=== PATIENT | male | born 1970 | race Asian ===

== ENCOUNTER 2016-11-23 11:14 | Emergency (ER) | payer MEDICAID ==
[2016-11-23 11:42] LABS: COLOR YELLOW; LEUKOCYTE ESTERASE,URINE NEGATIVE (NEGATIVE); NITRITE,URINE NEGATIVE (NEGATIVE)
[2016-11-23] MEDS ORDERED: NS 1,000 ML IV ONE (11:45)
--- NOTE | 2016-11-23 11:45 | UCPHY ---
H & P Patient Type: Established Chief Complaint Nursing Narrative: painful, burning urination x 2 weeks; LLq pain since last night; vomiting last night; chills/sweats since last night Time Seen by Provider: 11/23/16 11:18 HPI/ROS: CHIEF COMPLAINT: Dysuria, fever, low back pain HISTORY OF PRESENT ILLNESS: The patient presents to the urgent care with a 2 week history dysuria. Over the past day he has developed fever, low back pain and left lower quadrant pain. The patient denies prior history of the symptoms. The patient has no history kidney stone or prior genitourinary infection. The patient has no history of abdominal surgery. Patient reports his symptoms are moderate in nature. He reports subjective fevers without a measured temperature at home. The patient has no complaints of upper respiratory illness. REVIEW OF SYSTEMS: A comprehensive 10 point review of systems is otherwise negative aside from elements mentioned in the history of present illness. Source: Patient - Personal History Current Tetanus Diphtheria and Acellular Pertussis (TDAP): No - Medical/Surgical History Other PMH: myasthenia gravis, Hep C. surg-none - Family History Significant Family History: No pertinent family hx - Social History Smoking Status: Current every day smoker - Physical Exam Exam: General Appearance: Alert, no distress Eyes: Pupils equal and round no pallor or injection ENT, Mouth: Mucous membranes moist Respiratory: There are no retractions, lungs are clear to auscultation Cardiovascular: Regular rate and rhythm Gastrointestinal: Tenderness to palpation left lower quadrant Neurological: A&O, normal motor function, normal sensory exam, normal cranial nerves Skin: Warm and dry, no rashes Musculoskeletal: Neck is supple nontender Extremities: symmetrical, full range of motion Constitutional: Initial Vital Signs Temperature (C) 37.2 C 11/23/16 11:19 Heart Rate 89 11/23/16 11:19 Respiratory Rate 16 11/23/16 11:19 Blood Pressure 136/90 H 11/23/16 11:19 O2 Sat (%) 94 11/23/16 11:19 O2 Delivery Mode Room Air Allergies/Adverse Reactions: No Known Allergies Allergy (Verified 11/23/16 11:17) Home Medications: Medication Instructions Recorded Baraclude 08/11/15 Cellcept 11/23/16 Mestinon 11/23/16 Ondansetron Odt [Zofran Odt] 4 mg PO Q4PRN PRN #20 tab 11/23/16 Tamsulosin HCl [Flomax] 0.4 mg PO DAILY PRN #5 cap 11/23/16 oxyCODONE/APAP 5/325 [Percocet 1 - 2 tab PO Q6-8PRN PRN #20 tab 11/23/16 5/325 (RX)] Medical Decision Making - Diagnostics Imaging Results: Imaging Impressions Abdomen/Pelvis CT 11/23/16 11:57 Impression: 1. 5 mm distal left ureteral stone with mild obstructive uropathy and perinephric and periureteric stranding suggesting forniceal rupture. 2. Nonobstructing 4 mm stone in the distal right ureter. 3. Nephrolithiasis. 4. Additional findings as above. Attention: This CT examination is specifically designed to evaluate patients who are clinically suspected of having acute obstructive uropathy. This examination does not use radiographic contrast, and as such, provides only a limited evaluation of the abdomen, pelvis and retroperitoneum. If there is further clinical suspicion for pathological conditions other than obstructive uropathy, a complete CT evaluation of the abdomen and pelvis utilizing intravenous and oral contrast should be considered. Findings discussed with Cooper Purcell on November 23, 2016 at 12:25 p.m. ED Course/Re-evaluation: The patient presents to the emergency department with complaints of dysuria and left flank pain. He is noted to have a 5 mm distal left kidney stone on his CT scan. He also has a nonobstructing 4 mm right distal kidney stone. The patient did have mild renal insufficiency with a creatinine of 1.5. The patient did receive a 1 L of normal saline. The patient received IV morphine. The patient received oral Flomax. The patient has not been given NSAID's secondary to his slightly elevated creatinine. Given the bilateral ureterolithiasis I did nyla Jackson from Urology who will see the patient in follow-up later this week. The patient will be discharged home with customary aftercare instructions and return precautions. Differential Diagnosis: Differential diagnosis considered includes nephrolithiasis, ureterolithiasis, pyelonephritis - Data Points Laboratory Results: Laboratory Results 11/23/16 11:55 11/23/16 11:55 11/23/16 11/23/16 11/23/16 11:55 11:55 11:39 WBC 10.34 10^3/uL H 10^3/uL (3.80-9.50) RBC 5.62 10^6/uL 10^6/uL (4.40-6.38) Hgb 15.2 g/dL g/dL (13.7-17.5) Hct 44.2 % % (40.0-51.0) MCV 78.6 fL L fL (81.5-99.8) MCH 27.0 pg L pg (27.9-34.1) MCHC 34.4 g/dL g/dL (32.4-36.7) RDW 13.7 % % (11.5-15.2) Plt Count 190 10^3/uL 10^3/uL (150-400) MPV 9.9 fL fL (8.7-11.7) Neut % (Auto) 66.2 % % (39.3-74.2) Lymph % (Auto) 15.0 % % (15.0-45.0) [place] % (Auto) 16.6 % H % (4.5-13.0) Eos % (Auto) 1.5 % % (0.6-7.6) Baso % (Auto) 0.3 % % (0.3-1.7) Nucleat RBC Rel Count 0.0 % % (0.0-0.2) Absolute Neuts (auto) 6.85 10^3/uL H 10^3/uL (1.70-6.50) Absolute Lymphs (auto) 1.55 10^3/uL 10^3/uL (1.00-3.00) Absolute Monos (auto) 1.72 10^3/uL H 10^3/uL (0.30-0.80) Absolute Eos (auto) 0.15 10^3/uL 10^3/uL (0.03-0.40) Absolute Basos (auto) 0.03 10^3/uL 10^3/uL (0.02-0.10) Absolute Nucleated RBC 0.00 10^3/uL 10^3/uL (0-0.01) Immature Gran % 0.4 % % (0.0-1.1) Immature Gran # 0.04 10^3/uL 10^3/uL (0.00-0.10) Sodium 139 mEq/L mEq/L (134-144) Potassium 3.9 mEq/L mEq/L (3.5-5.2) Chloride 102 mEq/L mEq/L (97-110) Carbon Dioxide 23 mEq/l mEq/l (22-31) Anion Gap 14 mEq/L mEq/L (8-16) BUN 16 mg/dL mg/dL (7-23) Creatinine 1.5 mg/dL H mg/dL (0.7-1.3) Estimated GFR 50 Glucose 89 mg/dL mg/dL (70-100) Calcium 8.9 mg/dL mg/dL (8.5-10.4) Urine Color YELLOW Urine Appearance CLEAR Urine pH 7.0 (5.0-7.5) Ur Specific [place] 1.015 (1.002-1.030) Urine Protein NEGATIVE (NEGATIVE) Urine Ketones NEGATIVE (NEGATIVE) Urine Blood 1+ H (NEGATIVE) Urine Nitrate NEGATIVE (NEGATIVE) Urine Bilirubin NEGATIVE (NEGATIVE) Urine Urobilinogen 0.2 EU EU (0.2-1.0) Ur Leukocyte Esterase NEGATIVE (NEGATIVE) Urine RBC 10-15 /hpf H /hpf (0-3) Urine WBC 1-3 /hpf /hpf (0-3) Ur Epithelial Cells 2+ /lpf H /lpf (NONE-1+) Amorphous Sediment TRACE /hpf /hpf (NONE-1+) Ur Culture Indicated? NOT INDICATED (NI) Urine Glucose NEGATIVE (NEGATIVE) Medications Given: Discontinued Medications Sodium Chloride (Ns) 1,000 mls @ 0 mls/hr IV ONCE ONE PRN Reason: Wide Open Stop: 11/23/16 11:46 Last Admin: 11/23/16 12:10 Dose: 1,000 mls Tamsulosin HCl (Flomax) 0.4 mg PO EDNOW ONE Stop: 11/23/16 12:33 Last Admin: 11/23/16 12:42 Dose: 0.4 mg Departure - Departure Disposition: Home, Routine, Self-Care Clinical Impression: Kidney stone on left side Condition: Good Instructions: Kidney Stones (ED) Additional Instructions: 1. Tylenol as needed for pain 2. Percocet as needed for severe pain. Percocet also contains Tylenol. Do not take more than 3 g of Tylenol a day. 3. Flomax as directed 4. Zofran as needed for nausea 5. Strain urine as directed 6. Return to the Emergency Department for intractable pain, fever or vomiting. 7. Please contact the urologist office that you have been referred to to schedule a follow-up visit for later in the week. Given the fact you have a stone in both of your kidneys it is imperative that you be seen in close follow- up to make sure there is no compromise in your kidney function. Referrals: Tami Farias MD [Medical Doctor] - As per Instructions Prescriptions: Ondansetron Odt [Zofran Odt] 4 mg PO Q4PRN PRN #20 tab PRN Reason: For Nausea oxyCODONE/APAP 5/325 [Percocet 5/325 (RX)] 1 - 2 tab PO Q6-8PRN PRN #20 tab PRN Reason: for pain Tamsulosin HCl [Flomax] 0.4 mg PO DAILY PRN #5 cap PRN Reason: for pain - PQRS PQRS Measurement: NA
[2016-11-23 11:54] LABS: AMORPHOUS TRACE /hpf (NONE-1+)
[2016-11-23 11:59] LABS: % IMMATURE GRANULYOCYTES 0.4 % (0.0-1.1); ABSOLUTE IMMATURE GRANULOCYTES 0.04 10^3/uL (0.00-0.10); ADD DIFF? NO; ADD MORPH? NO; ADD SCAN? NO; ATYPICAL LYMPHOCYTE FLAG 10 (0-99); FRAGMENT RBC FLAG 0 (0-99); HEMATOCRIT 44.2 % (40.0-51.0); HEMOGLOBIN 15.2 g/dL (13.7-17.5); LEFT SHIFT FLG 0 (0-99); LIPEMIA HEMOLYSIS FLAG 90 (0-99); MEAN CELL HEMOGLOBIN CONCENTR. 34.4 g/dL (32.4-36.7); MEAN CELL VOLUME 78.6 fL (81.5-99.8); MEAN PLATELET VOLUME 9.9 fL (8.7-11.7); PLATELET CLUMPS FLAG 10 (0-99); PLATELET COUNT 190 10^3/uL (150-400); RED BLOOD CELL COUNT 5.62 10^6/uL (4.40-6.38); RED CELL DISTRIBUTION WIDTH 13.7 % (11.5-15.2)
[2016-11-23 12:26] LABS: CALCIUM 8.9 mg/dL (8.5-10.4); CREATININE 1.5 mg/dL (0.7-1.3); POTASSIUM 3.9 mEq/L (3.5-5.2)
[2016-11-23] MEDS ORDERED: TAMSULOSIN HCL 0.4 MG CAP PO ONE (12:32)
[2016-11-23 12:59] VITALS: BP 133/78; PULSE 82; RESP 18; TEMP 99.3; O2SAT 96
== END 2016-11-23 13:26 | disposition home or self-care (01) ==
LOC: CED 11:14
DX: N20.2 Calculus of kidney with calculus of ureter (principal); Z72.0 Tobacco use
CPT/HCPCS: 74176-PO; 80048-PO; 81003-PO; 81015-PO; 85025-PO; 96360-PO; 99205-PO; G0463-PO

== ENCOUNTER 2016-12-23 07:28 | Emergency (ER) | payer MEDICAID ==
[2016-12-23] MEDS ORDERED: NS 2,200 ML IV ONE (07:50)
[2016-12-23] MEDS ORDERED: ACETAMINOPHEN 500 MG TAB PO ONE (07:53)
--- NOTE | 2016-12-23 07:53 | EDPHY ---
H & P Stated Complaint: fever, headache, nausea 4 days Time Seen by Provider: 12/23/16 07:43 HPI/ROS: CHIEF COMPLAINT: Fever, body aches, headache, cough HISTORY OF PRESENT ILLNESS: Patient is a 46-year-old man from [place] who comes to the emergency department with his family complaining of a cough, fever , body aches, sore throat, sinus congestion, headache and nausea and vomiting for the last 4 days. He has vomited twice nonbloody. No diarrhea. No altered consciousness. He has not had any travel recently. REVIEW OF SYSTEMS: Constitutional: See HPI EENTM: denies: blurred vision, double vision Respiratory: denies: cough, shortness of breath Cardiac: denies: chest pain, irregular heart rate, lightheadedness, palpitations Gastrointestinal/Abdominal: denies: abdominal pain, diarrhea, nausea, vomiting, blood streaked stools Genitourinary: denies: dysuria, frequency, hematuria, pain Musculoskeletal: denies: joint pain, muscle pain Skin: denies: lesions, rash, jaundice, bruising Neurological: denies: headache, numbness, paresthesia, tingling, dizziness, weakness Hematologic/Lymphatic: denies: blood clots, easy bleeding, easy bruising Immunologic/allergic: denies: HIV/AIDS, transplant EXAM: GENERAL: Well-appearing, well-nourished and in no acute distress. HEAD: Atraumatic, normocephalic. 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 ENT: TMs normal, nares patent, oropharynx mildly erythematous and dry mucous membranes NECK: Normal range of motion, supple without lymphadenopathy or JVD. LUNGS: Breath sounds clear to auscultation bilaterally and equal. No wheezes rales or rhonchi. HEART: Regular rate and rhythm without murmurs, rubs or gallops. ABDOMEN: Soft, nontender, normoactive bowel sounds. No guarding, no rebound. No masses appreciated. BACK: No CVA tenderness, no spinal tenderness, step-offs or deformities EXTREMITIES: Normal range of motion, no pitting or edema. No clubbing or cyanosis. NEUROLOGICAL: Cranial nerves II through XII grossly intact. Normal speech, normal gait. 5/5 strength, normal movement in all extremities, normal sensation PSYCH: Normal mood, normal affect. SKIN: Warm, dry, normal turgor, no visible rashes or lesions. Source: Patient Exam Limitations: No limitations - Medical/Surgical History Hx Asthma: No Hx Chronic Respiratory Disease: No Hx Diabetes: No Hx Cardiac Disease: No Hx Renal Disease: No Hx Cirrhosis: No Hx Alcoholism: No Other PMH: myasthenia gravis, Hep C. surg-none - Social History Smoking Status: Current every day smoker Alcohol Use: Sober Drug Use: None Constitutional: Initial Vital Signs Temperature (C) 38.3 C 12/23/16 07:36 Heart Rate 103 H 12/23/16 07:36 Respiratory Rate 18 12/23/16 07:36 Blood Pressure 126/84 H 12/23/16 07:36 O2 Sat (%) 96 12/23/16 07:36 O2 Delivery Mode Room Air Allergies/Adverse Reactions: No Known Allergies Allergy (Verified 12/23/16 07:42) Home Medications: Medication Instructions Recorded Baraclude 08/11/15 Cellcept 11/23/16 Mestinon 11/23/16 Medical Decision Making - Diagnostics Imaging Results: Imaging Impressions Chest X-Ray 12/23/16 07:50 Impression: No pneumonia. Imaging: Discussed imaging studies w/ manager call center Radiologist ED Course/Re-evaluation: Patient's urinalysis is positive. I will start him on Rocephin. The patient states that he had kidney stones lasered 3 [address] Farias at [facility]. He was seen here 1 month ago for bilateral ureteral stones. This is likely the source of his infection. His fever has increased but his heart rate is improved with fluids. Will add ibuprofen. Considering the patient's immunocompromised status on CellCept for myasthenia gravis the possible surgical complications I recommended admission. The patient understands and agrees. He is requesting [facility]. 9:50 a.m. I spoke with Dr. Nicolás Johnson was on-call from [facility]. He agrees with admission and antibiotics in the form of Rocephin. He agrees to consult if the patient is admitted to the hospitalist service. He is okay with a [place] as the patient requests. 10:05 a.m. I discussed the case with Dr. Macdonald who accepted at a [facility] floor. Differential Diagnosis: Partial list of the Differential diagnosis considered include but were not limited to; sepsis, pyelonephritis, urinary tract infection, rupture and although unlikely based on the history and physical exam, I also considered abscess, hemorrhage. Critical Care Time: Critical care time spent by me, Dr. Ames exclusive with this patient was 35 minutes, exclusive of the PA time exclusive of procedures. The organ system that was at risk was cardiovascular and I gave IV fluids, antibiotics and transfer to prevent worsening of the patient's condition - Data Points Laboratory Results: Laboratory Results 12/23/16 08:30 12/23/16 08:30 12/23/16 12/23/16 12/23/16 Unknown 10:10 08:30 WBC RBC Hgb Hct MCV MCH MCHC RDW Plt Count MPV Neut % (Auto) Lymph % (Auto) [place] % (Auto) Eos % (Auto) Baso % (Auto) Nucleat RBC Rel Count Absolute Neuts (auto) Absolute Lymphs (auto) Absolute Monos (auto) Absolute Eos (auto) Absolute Basos (auto) Absolute Nucleated RBC Immature Gran % Immature Gran # PT INR APTT VBG Lactic Acid 0.6 mmol/L L D mmol/L (0.7-2.1) Sodium 138 mEq/L mEq/L (134-144) Potassium 4.1 mEq/L mEq/L (3.5-5.2) Chloride 99 mEq/L mEq/L (97-110) Carbon Dioxide 21 mEq/l L mEq/l (22-31) Anion Gap 18 mEq/L H mEq/L (8-16) BUN 14 mg/dL mg/dL (7-23) Creatinine 1.0 mg/dL mg/dL (0.7-1.3) Estimated GFR > 60 Glucose 114 mg/dL H mg/dL (70-100) Calcium 8.7 mg/dL mg/dL (8.5-10.4) Total Bilirubin 1.0 mg/dL mg/dL (0.1-1.4) Urine Color Urine Appearance Urine pH Ur Specific [place] Urine Protein Urine Ketones Urine Blood Urine Nitrate Urine Bilirubin Urine Urobilinogen Ur Leukocyte Esterase Urine RBC Urine WBC Ur Epithelial Cells Amorphous Sediment Urine Bacteria Urine Mucus Urine Glucose Influenza A & B (PCR) Influenza A,B Rapid Group A Strep Screen Group A Strep DNA Pending 12/23/16 12/23/16 12/23/16 08:30 08:30 08:30 WBC 14.18 10^3/uL H 10^3/uL (3.80-9.50) RBC 5.73 10^6/uL 10^6/uL (4.40-6.38) Hgb 15.3 g/dL g/dL (13.7-17.5) Hct 44.7 % % (40.0-51.0) MCV 78.0 fL L fL (81.5-99.8) MCH 26.7 pg L pg (27.9-34.1) MCHC 34.2 g/dL g/dL (32.4-36.7) RDW 13.1 % % (11.5-15.2) Plt Count 209 10^3/uL 10^3/uL (150-400) MPV 10.0 fL fL (8.7-11.7) Neut % (Auto) 70.0 % % (39.3-74.2) Lymph % (Auto) 12.6 % L % (15.0-45.0) [place] % (Auto) 16.1 % H % (4.5-13.0) Eos % (Auto) 0.2 % L % (0.6-7.6) Baso % (Auto) 0.5 % % (0.3-1.7) Nucleat RBC Rel Count 0.0 % % (0.0-0.2) Absolute Neuts (auto) 9.93 10^3/uL H 10^3/uL (1.70-6.50) Absolute Lymphs (auto) 1.78 10^3/uL 10^3/uL (1.00-3.00) Absolute Monos (auto) 2.29 10^3/uL H 10^3/uL (0.30-0.80) Absolute Eos (auto) 0.03 10^3/uL 10^3/uL (0.03-0.40) Absolute Basos (auto) 0.07 10^3/uL 10^3/uL (0.02-0.10) Absolute Nucleated RBC 0.00 10^3/uL 10^3/uL (0-0.01) Immature Gran % 0.6 % % (0.0-1.1) Immature Gran # 0.08 10^3/uL 10^3/uL (0.00-0.10) PT 13.4 SEC SEC (12.0-15.0) INR 1.05 (0.83-1.16) APTT 38.5 SEC H SEC (23.0-38.0) VBG Lactic Acid 2.0 mmol/L mmol/L (0.7-2.1) Sodium Potassium Chloride Carbon Dioxide Anion Gap BUN Creatinine Estimated GFR Glucose Calcium Total Bilirubin Urine Color Urine Appearance Urine pH Ur Specific [place] Urine Protein Urine Ketones Urine Blood Urine Nitrate Urine Bilirubin Urine Urobilinogen Ur Leukocyte Esterase Urine RBC Urine WBC Ur Epithelial Cells Amorphous Sediment Urine Bacteria Urine Mucus Urine Glucose Influenza A & B (PCR) Influenza A,B Rapid Group A Strep Screen Group A Strep DNA 12/23/16 12/23/16 12/23/16 08:10 07:45 07:45 WBC RBC Hgb Hct MCV MCH MCHC RDW Plt Count MPV Neut % (Auto) Lymph % (Auto) [place] % (Auto) Eos % (Auto) Baso % (Auto) Nucleat RBC Rel Count Absolute Neuts (auto) Absolute Lymphs (auto) Absolute Monos (auto) Absolute Eos (auto) Absolute Basos (auto) Absolute Nucleated RBC Immature Gran % Immature Gran # PT INR APTT VBG Lactic Acid Sodium Potassium Chloride Carbon Dioxide Anion Gap BUN Creatinine Estimated GFR Glucose Calcium Total Bilirubin Urine Color YELLOW Urine Appearance HAZY Urine pH 7.0 (5.0-7.5) Ur Specific [place] 1.015 (1.002-1.030) Urine Protein 2+ H (NEGATIVE) Urine Ketones 1+ H (NEGATIVE) Urine Blood 3+ H (NEGATIVE) Urine Nitrate POSITIVE H (NEGATIVE) Urine Bilirubin NEGATIVE (NEGATIVE) Urine Urobilinogen 1.0 EU EU (0.2-1.0) Ur Leukocyte Esterase 3+ H (NEGATIVE) Urine RBC >182 /hpf H /hpf (0-3) Urine WBC >182 /hpf H /hpf (0-3) Ur Epithelial Cells TRACE /lpf /lpf (NONE-1+) Amorphous Sediment 1+ /hpf /hpf (NONE-1+) Urine Bacteria 2+ /hpf H /hpf (NONE SEEN) Urine Mucus 1+ /lpf /lpf (NONE-1+) Urine Glucose NEGATIVE (NEGATIVE) Influenza A & B (PCR) Influenza A,B Rapid NEGATIVE FOR FLU (NEGATIVE) Group A Strep Screen NEGATIVE (NEGATIVE) Group A Strep DNA 12/23/16 07:45 WBC RBC Hgb Hct MCV MCH MCHC RDW Plt Count MPV Neut % (Auto) Lymph % (Auto) [place] % (Auto) Eos % (Auto) Baso % (Auto) Nucleat RBC Rel Count Absolute Neuts (auto) Absolute Lymphs (auto) Absolute Monos (auto) Absolute Eos (auto) Absolute Basos (auto) Absolute Nucleated RBC Immature Gran % Immature Gran # PT INR APTT VBG Lactic Acid Sodium Potassium Chloride Carbon Dioxide Anion Gap BUN Creatinine Estimated GFR Glucose Calcium Total Bilirubin Urine Color Urine Appearance Urine pH Ur Specific [place] Urine Protein Urine Ketones Urine Blood Urine Nitrate Urine Bilirubin Urine Urobilinogen Ur Leukocyte Esterase Urine RBC Urine WBC Ur Epithelial Cells Amorphous Sediment Urine Bacteria Urine Mucus Urine Glucose Influenza A & B (PCR) Cancelled Influenza A,B Rapid Group A Strep Screen Group A Strep DNA Medications Given: Discontinued Medications Acetaminophen (Tylenol) 1,000 mg PO EDNOW ONE Stop: 12/23/16 07:54 Last Admin: 12/23/16 08:30 Dose: 1,000 mg Sodium Chloride (Ns) 2,200 mls @ 4,400 mls/hr 30 ml/kg infuse over 30 min ( 2200 ml) IV EDNOW ONE Stop: 12/23/16 08:19 Last Admin: 12/23/16 08:25 Dose: 2,200 mls Ceftriaxone Sodium 1 gm/ (Sodium Chloride) 100 mls @ 200 mls/hr IV EDNOW ONE PRN Reason: Protocol Stop: 12/23/16 08:46 Last Admin: 12/23/16 09:05 Dose: 100 mls Ibuprofen (Motrin) 800 mg PO EDNOW ONE Stop: 12/23/16 09:08 Last Admin: 12/23/16 09:22 Dose: 800 mg Departure - Departure Disposition: Acute Care Hospital Not [facility] Clinical Impression: Acute pyelonephritis Sepsis Qualifiers: Sepsis type: sepsis due to unspecified organism Qualified Code(s): A41.9 - Sepsis, unspecified organism Condition: Fair Referrals: NONE *PRIMARY CARE P,. [Primary Care Provider] - As per Instructions
[2016-12-23 08:14] LABS: COLOR YELLOW; LEUKOCYTE ESTERASE,URINE 3+ (NEGATIVE); NITRITE,URINE POSITIVE (NEGATIVE)
[2016-12-23 08:24] LABS: MUCUS 1+ /lpf (NONE-1+)
[2016-12-23 08:25] LABS: AMORPHOUS 1+ /hpf (NONE-1+); BACTERIA 2+ /hpf (NONE SEEN); RBC,URINE >182 /hpf (0-3); WBC,URINE >182 /hpf (0-3)
[2016-12-23 08:42] LABS: % IMMATURE GRANULYOCYTES 0.6 % (0.0-1.1); ABSOLUTE IMMATURE GRANULOCYTES 0.08 10^3/uL (0.00-0.10); ADD DIFF? NO; ADD MORPH? NO; ADD SCAN? NO; ATYPICAL LYMPHOCYTE FLAG 0 (0-99); FRAGMENT RBC FLAG 0 (0-99); HEMATOCRIT 44.7 % (40.0-51.0); HEMOGLOBIN 15.3 g/dL (13.7-17.5); LEFT SHIFT FLG 0 (0-99); LIPEMIA HEMOLYSIS FLAG 90 (0-99); MEAN CELL HEMOGLOBIN 26.7 pg (27.9-34.1); MEAN CELL HEMOGLOBIN CONCENTR. 34.2 g/dL (32.4-36.7); PLATELET CLUMPS FLAG 10 (0-99); PLATELET COUNT 209 10^3/uL (150-400); RED BLOOD CELL COUNT 5.73 10^6/uL (4.40-6.38); RED CELL DISTRIBUTION WIDTH 13.1 % (11.5-15.2)
[2016-12-23 08:54] LABS: CALCIUM 8.7 mg/dL (8.5-10.4); CARBON DIOXIDE 21 mEq/l (22-31); CHLORIDE 99 mEq/L (97-110); GLOMERULAR FILTRATION RATE > 60; GLUCOSE 114 mg/dL (70-100); SODIUM 138 mEq/L (134-144)
[2016-12-23 08:55] LABS: POTASSIUM 4.1 mEq/L (3.5-5.2)
[2016-12-23 08:56] LABS: ANION GAP 18 mEq/L (8-16)
[2016-12-23 09:03] LABS: INR 1.05 (0.83-1.16); PROTIME(PATIENT) 13.4 SEC (12.0-15.0)
[2016-12-23 09:04] LABS: APTT 38.5 SEC (23.0-38.0)
[2016-12-23] MEDS ORDERED: IBUPROFEN 800 MG TAB PO ONE (09:07)
[2016-12-23] MEDS ORDERED: IBUPROFEN 600 MG TAB PO ONE (09:19)
[2016-12-23] MEDS ORDERED: IBUPROFEN 200 MG TAB PO ONE (09:20)
[2016-12-23 12:42] VITALS: BP 105/65; PULSE 85; RESP 16; TEMP 99.7
[2016-12-23 12:46] VITALS: O2SAT 95
== END 2016-12-23 11:28 | disposition short-term general hospital (02) ==
LOC: CED 07:28
DX: A41.9 Sepsis, unspecified organism (principal); N10 Acute pyelonephritis; F17.200 Nicotine dependence, unspecified, uncomplicated
CPT/HCPCS: 71020-PO; 80048-PO; 81003-PO; 81015-PO; 82247-PO; 83605-PO; 85025-PO; 85610-PO; 85730-PO; 87400-PO; 87880-PO; 96365; J0696